=== PATIENT | female | born 1975 | race Caucasian/White ===

== ENCOUNTER 2018-05-20 14:05 | Emergency (ER) | payer OTHER ==
[~2018-05-20] VITALS: Ht 154.9 cm; Wt 66.2 kg
[2018-05-20] MEDS ORDERED: LORazepam 1MG TABLET PO ONE (14:30)
[2018-05-20 14:42] LABS: BASOPHILS # (AUTO) 0.04 x10^3/uL (0-0.1); BASOPHILS % (AUTO) 0 % (0-1); EOSINOPHILS # (AUTO) 0.02 x10^3/uL (0-0.4); EOSINOPHILS % (AUTO) 0 % (1-7); LYMPHOCYTES # (AUTO) 1.47 x10^3/uL (1-3.4); LYMPHOCYTES % (AUTO) 16 % (22-44); MD NO; MEAN CORPUSCULAR HEMOGLOBIN 35.9 pg (27.0-34.8); MEAN CORPUSCULAR HGB CONC 34.5 g/dL (32.4-35.8); MEAN CORPUSCULAR VOLUME 104.2 fL (80-100); MEAN PLATELET VOLUME 8.5 fL (7.4-10.4); MONOCYTES # (AUTO) 0.52 x10^3/uL (0.2-0.8); MONOCYTES % (AUTO) 6 % (2-9); NEUTROPHILS # (AUTO) 7.09 x10^3/uL (1.8-6.8); NEUTROPHILS % (AUTO) 78 % (42-75); PLATELET COUNT 168 x10^3/uL (130-400); RED BLOOD COUNT 3.92 x10^6/uL (3.82-5.3); RED CELL DISTRIBUTION WIDTH 12.2 % (9.6-15.2)
[2018-05-20] MEDS ORDERED: LORazepam 1MG TABLET ONE (14:50)
[2018-05-20 14:54] LABS: ALBUMIN 3.6 g/dL (3.4-5.0); ANION GAP 9 mmol/L (5-15); CALCIUM 9.2 mg/dL (8.5-10.1); CHLORIDE 106 mmol/L (98-107)
[2018-05-20 14:57] LABS: ALANINE AMINOTRANSFERASE 51 U/L (12-78); ALKALINE PHOSPHATASE 86 U/L (45-117); BILIRUBIN,TOTAL 0.7 mg/dL (0.2-1.0); CREATININE 1.36 mg/dL (0.55-1.02); TOTAL PROTEIN 8.1 g/dL (6.4-8.2)
[2018-05-20 16:48] VITALS: BP 132/87
== END 2018-05-20 16:51 | disposition home or self-care (01) ==
LOC: ED 16:37
DX: F41.1 Generalized anxiety disorder (principal); I10 Essential (primary) hypertension; F17.210 Nicotine dependence, cigarettes, uncomplicated; G43.909 Migraine, unspecified, not intractable, without status migrainosus
CPT/HCPCS: 36415; 70450; 71046; 80053; 85025; 93005; 99284

== ENCOUNTER 2020-12-15 19:39 | Emergency (ER) | payer OTHER ==
[~2020-12-15] VITALS: Ht 154.9 cm; Wt 61.5 kg
[2020-12-15 19:41] VITALS: BP 182/118
[2020-12-15] MEDS ORDERED: ACETAMINOPHEN 500 MG TABLET PO ONE (20:30)
[2020-12-15] MEDS ORDERED: ACETAMINOPHEN 500 MG TABLET ONE (20:34)
--- NOTE | 2020-12-15 20:37 | NUR ---
MEDS ADMIN PER AUG. XRAY AT BEDSIDE.
== END 2020-12-15 21:29 | disposition home or self-care (01) ==
LOC: ED 21:00
DX: L89.892 Pressure ulcer of other site, stage 2 (principal); I10 Essential (primary) hypertension; F17.200 Nicotine dependence, unspecified, uncomplicated
CPT/HCPCS: 99283

== ENCOUNTER 2021-01-01 19:04 | Inpatient (IN) | payer MEDICARE, MEDICAID ==
[~2021-01-01] VITALS: Ht 154.9 cm; Wt 65.2 kg
[2021-01-01] MEDS ORDERED: ENAL20TA9 PO (19:30)
[2021-01-01] MEDS ORDERED: SULF-23 PO (19:30)
[2021-01-01] MEDS ORDERED: ACET1TAB64 PO (19:30)
[2021-01-01] MEDS ORDERED: METO50TA6 PO (19:30)
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
[2021-01-01 20:01] LABS: BASOPHILS % (AUTO) 1 % (0-1); EOSINOPHILS % (AUTO) 4 % (1-7); LYMPHOCYTES % (AUTO) 23 % (22-44); MEAN CORPUSCULAR HGB CONC 33.9 g/dL (32.4-35.8); MEAN PLATELET VOLUME 9.2 fL (7.4-10.4); MONOCYTES % (AUTO) 9 % (2-9); NEUTROPHILS % (AUTO) 63 % (42-75); PLATELET COUNT 184 x10^3/uL (130-400); RED BLOOD COUNT 3.66 x10^6/uL (3.82-5.3); RED CELL DISTRIBUTION WIDTH 12.6 % (9.6-15.2)
[2021-01-01 20:06] LABS: ALBUMIN 3.4 g/dL (3.4-5.0); ANION GAP 5 mmol/L (5-15); C-REACTIVE PROTEIN, QUANT 0.27 mg/dL (0.02-0.49); CALCIUM 9.1 mg/dL (8.5-10.1); CHLORIDE 106 mmol/L (98-107); CREATININE 2.37 mg/dL (0.55-1.02)
[2021-01-01 20:27] LABS: <PLATELET ESTIMATE> ADEQUATE; <PLT MORPHOLOGY> NORMAL PLT MORPH; ANISOCYTOSIS 1+
--- NOTE | 2021-01-01 20:43 | NUR ---
ER PROVIDER AT BEDSIDE TO DISCUSS POC.
[2021-01-01] MEDS ORDERED: ONDANSETRON 2MG/ML, 2ML ONE (20:46)
[2021-01-01] MEDS ORDERED: MORPHINE SULFATE 4 MG/ML, 1ML ONE (20:47)
[2021-01-01] MEDS ORDERED: SODIUM CHLORIDE 0.9% 1,000ML IVBOLUS ONE (21:00)
--- NOTE | 2021-01-01 21:28 | NUR ---
ABX INFUSING AFTER 2ND SET OF BLOOD CULTURES DRAWN.
[2021-01-01] MEDS ORDERED: VANCOMYCIN 1,500 MG in SODIUM CHLORIDE 0.9% 250 ML IV ONE (21:30)
[2021-01-01] MEDS ORDERED: ONDANSETRON 2MG/ML, 2ML IVPush ONE (21:30)
[2021-01-01] MEDS ORDERED: VANCOMYCIN PER PHARMACY MC ONE (21:30)
[2021-01-01] MEDS ORDERED: CEFTRIAXONE 1,000 MG in DEXTROSE 5% 50 ML IVPB ONE (21:30)
[2021-01-01] MEDS ORDERED: MORPHINE SULFATE 4 MG/ML, 1ML IVPush PRN (21:30)
--- NOTE | 2021-01-01 21:34 | NUR ---
REPORT TO YESY VEGA.
[2021-01-01] MEDS ORDERED: ACETAMINOPHEN 325 MG TABLET PO PRN (22:00)
[2021-01-01] MEDS ORDERED: hydrALAzine 20 MG/ML, 1ML IVPush PRN (22:00)
[2021-01-01] MEDS ORDERED: METHOCARBAMOL 500 MG TABLET PO PRN (22:00)
[2021-01-01] MEDS ORDERED: ZOLPIDEM 5MG TABLET PO PRN (22:00)
[2021-01-01] MEDS ORDERED: VANCOMYCIN PER PHARMACY MC PRN (22:00)
[2021-01-01] MEDS ORDERED: GUAIFENESIN/DM 200-20MG, 10ML UDC PO PRN (22:00)
[2021-01-01 22:23] VITALS: BP 145/93
[2021-01-01] MEDS: OXYcodone IR 5MG TABLET PO PRN (22:50)
[2021-01-01] MEDS: SODIUM CHLORIDE 0.9% 1,000 ML IV SCH (22:51)
[2021-01-01] MEDS ORDERED: PHARMACOKINETIC MONITORING MC PRN (23:00)
[2021-01-02] MEDS: morphine SULFATE 10 MG/ML, 1ML IVPush PRN ×5 (00:49→20:06)
[2021-01-02 00:58] VITALS: BP 130/83
[2021-01-02 02:46] LABS: BASOPHILS % (AUTO) 1 % (0-1); EOSINOPHILS % (AUTO) 4 % (1-7); LYMPHOCYTES % (AUTO) 27 % (22-44); MEAN CORPUSCULAR HGB CONC 33.9 g/dL (32.4-35.8); MEAN PLATELET VOLUME 9.2 fL (7.4-10.4); MONOCYTES % (AUTO) 9 % (2-9); NEUTROPHILS % (AUTO) 60 % (42-75); PLATELET COUNT 154 x10^3/uL (130-400); RED BLOOD COUNT 3.39 x10^6/uL (3.82-5.3); RED CELL DISTRIBUTION WIDTH 12.4 % (9.6-15.2)
[2021-01-02] MEDS: OXYcodone IR 5MG TABLET PO PRN ×5 (02:54→22:04)
[2021-01-02 02:56] LABS: ANION GAP 4 mmol/L (5-15); CALCIUM 8.3 mg/dL (8.5-10.1); CHLORIDE 111 mmol/L (98-107); CREATININE 2.02 mg/dL (0.55-1.02)
[2021-01-02 07:32] VITALS: BP 135/91
[2021-01-02] MEDS: METOPROLOL TARTRATE 50 MG TAB PO SCH ×2 (07:56→20:07)
[2021-01-02] MEDS: AMLODIPINE 5 MG TABLET PO SCH (07:56)
[2021-01-02] MEDS: ONDANSETRON 2MG/ML, 2ML IVPush PRN ×2 (08:27→17:15)
[2021-01-02] MEDS ORDERED: ENALAPRIL 20MG TABLET PO SCH (09:00)
[2021-01-02] MEDS: SODIUM CHLORIDE 0.9% 1,000 ML IV SCH (12:00)
[2021-01-02 14:39] VITALS: BP 141/93
[2021-01-02] MEDS ORDERED: LORazepam 2 MG/ML, 1ML IVPush ONE (15:30)
[2021-01-02] MEDS ORDERED: LORazepam 2 MG/ML, 1ML IVPush PRN (16:30)
[2021-01-02] MEDS: HEPARIN 5,000 UNITS/ML, 1ML SQ SCH (17:16)
[2021-01-02 20:07] VITALS: BP 141/90
[2021-01-02] MEDS ORDERED: CEFTRIAXONE 2 GM in DEXTROSE 5% 50 ML IVPB SCH (21:30)
[2021-01-02] MEDS ORDERED: VANCOMYCIN 1,200 MG in SODIUM CHLORIDE 0.9% 250 ML IV ONE (22:00)
[2021-01-03] MEDS: morphine SULFATE 10 MG/ML, 1ML IVPush PRN ×5 (00:58→21:04)
[2021-01-03] MEDS: HEPARIN 5,000 UNITS/ML, 1ML SQ SCH ×3 (00:58→16:55)
[2021-01-03 01:02] VITALS: BP 116/80
[2021-01-03] MEDS: OXYcodone IR 5MG TABLET PO PRN ×4 (03:58→19:51)
[2021-01-03] MEDS: SODIUM CHLORIDE 0.9% 1,000 ML IV SCH (05:16)
[2021-01-03 06:14] LABS: ALANINE AMINOTRANSFERASE 23 U/L (12-78); ALBUMIN 2.8 g/dL (3.4-5.0); ANION GAP 4 mmol/L (5-15); CALCIUM 8.3 mg/dL (8.5-10.1); CHLORIDE 110 mmol/L (98-107); CREATININE 1.61 mg/dL (0.55-1.02)
[2021-01-03 06:16] LABS: ALKALINE PHOSPHATASE 102 U/L (45-117); BILIRUBIN,TOTAL 0.3 mg/dL (0.2-1.0); TOTAL PROTEIN 6.6 g/dL (6.4-8.2)
[2021-01-03] MEDS: METOPROLOL TARTRATE 50 MG TAB PO SCH ×2 (07:45→22:29)
[2021-01-03] MEDS: AMLODIPINE 5 MG TABLET PO SCH (07:45)
[2021-01-03 07:54] VITALS: BP 151/89
[2021-01-03] MEDS: ONDANSETRON 2MG/ML, 2ML IVPush PRN (10:03)
[2021-01-03] MEDS ORDERED: GADOTERATE 7.5 MMOL/15ML SYR ONE (11:13)
[2021-01-03 13:13] VITALS: BP 121/80
[2021-01-03 19:01] VITALS: BP 144/94
[2021-01-03 22:19] VITALS: BP 155/97
[2021-01-03] MEDS: DOCUSATE 100 MG CAPSULE PO PRN (22:29)
[2021-01-04 01:14] VITALS: BP 138/91
[2021-01-04] MEDS: morphine SULFATE 10 MG/ML, 1ML IVPush PRN ×2 (02:04→06:04)
[2021-01-04] MEDS: HEPARIN 5,000 UNITS/ML, 1ML SQ SCH ×3 (02:06→17:25)
[2021-01-04] MEDS: OXYcodone IR 5MG TABLET PO PRN ×5 (04:54→21:35)
[2021-01-04 06:52] VITALS: BP 135/83
[2021-01-04 07:15] LABS: BASOPHILS % (AUTO) 2 % (0-1); EOSINOPHILS % (AUTO) 5 % (1-7); LYMPHOCYTES % (AUTO) 31 % (22-44); MEAN CORPUSCULAR HGB CONC 33.8 g/dL (32.4-35.8); MEAN PLATELET VOLUME 9.4 fL (7.4-10.4); MONOCYTES % (AUTO) 11 % (2-9); NEUTROPHILS % (AUTO) 51 % (42-75); PLATELET COUNT 129 x10^3/uL (130-400); RED BLOOD COUNT 3.23 x10^6/uL (3.82-5.3); RED CELL DISTRIBUTION WIDTH 12.2 % (9.6-15.2)
[2021-01-04 07:21] LABS: ANION GAP 3 mmol/L (5-15); CALCIUM 8.5 mg/dL (8.5-10.1); CHLORIDE 110 mmol/L (98-107); CREATININE 1.43 mg/dL (0.55-1.02)
[2021-01-04] MEDS: METOPROLOL TARTRATE 50 MG TAB PO SCH ×2 (07:51→20:36)
[2021-01-04] MEDS: AMLODIPINE 5 MG TABLET PO SCH (07:51)
[2021-01-04 08:06] LABS: <PLATELET ESTIMATE> DECREASED; <PLT MORPHOLOGY> NORMAL PLT MORPH
[2021-01-04] MEDS: VANCOMYCIN 1,200 MG in SODIUM CHLORIDE 0.9% 250 ML IV SCH (12:34)
[2021-01-04 14:13] VITALS: BP 124/82
[2021-01-04 20:12] VITALS: BP 158/99
[2021-01-04] MEDS: DOCUSATE 100 MG CAPSULE PO PRN (21:36)
[2021-01-05 00:19] VITALS: BP 155/98
[2021-01-05] MEDS: DOCUSATE 100 MG CAPSULE PO PRN ×2 (06:15→22:30)
[2021-01-05] MEDS: HEPARIN 5,000 UNITS/ML, 1ML SQ SCH ×3 (06:16→22:17)
[2021-01-05] MEDS: OXYcodone IR 5MG TABLET PO PRN ×5 (06:35→21:49)
[2021-01-05 06:57] VITALS: BP 168/96
[2021-01-05] MEDS: METOPROLOL TARTRATE 50 MG TAB PO SCH ×2 (08:17→20:49)
[2021-01-05] MEDS: AMLODIPINE 5 MG TABLET PO SCH (08:17)
[2021-01-05] MEDS: VANCOMYCIN 1,200 MG in SODIUM CHLORIDE 0.9% 250 ML IV SCH (12:00)
[2021-01-05 12:52] VITALS: BP 159/95
[2021-01-05] MEDS: morphine SULFATE 10 MG/ML, 1ML IVPush PRN (15:19)
[2021-01-05] MEDS: CEFAZOLIN PMX 1GM/50ML 50 ML IV SCH (17:46)
[2021-01-05] MEDS ORDERED: POLYETHYLENE GLYCOL 17 GM PACKET ONE (17:52)
[2021-01-05 19:40] VITALS: BP 158/94
[2021-01-05 20:46] VITALS: BP 159/96
[2021-01-06 01:10] VITALS: BP 133/88
[2021-01-06] MEDS: CEFAZOLIN PMX 1GM/50ML 50 ML IV SCH ×2 (01:35→08:12)
[2021-01-06] MEDS: OXYcodone IR 5MG TABLET PO PRN ×3 (02:34→15:07)
[2021-01-06] MEDS: HEPARIN 5,000 UNITS/ML, 1ML SQ SCH ×2 (06:02→15:04)
[2021-01-06 06:17] LABS: BASOPHILS % (AUTO) 2 % (0-1); EOSINOPHILS % (AUTO) 7 % (1-7); LYMPHOCYTES % (AUTO) 28 % (22-44); MEAN CORPUSCULAR HEMOGLOBIN 36.8 pg (27.0-34.8); MEAN CORPUSCULAR HGB CONC 34.1 g/dL (32.4-35.8); MEAN PLATELET VOLUME 9.9 fL (7.4-10.4); MONOCYTES % (AUTO) 12 % (2-9); NEUTROPHILS % (AUTO) 52 % (42-75); PLATELET COUNT 152 x10^3/uL (130-400); RED BLOOD COUNT 3.35 x10^6/uL (3.82-5.3); RED CELL DISTRIBUTION WIDTH 12.3 % (9.6-15.2)
[2021-01-06 06:24] LABS: ALANINE AMINOTRANSFERASE 21 U/L (12-78); ALBUMIN 2.7 g/dL (3.4-5.0); ANION GAP 3 mmol/L (5-15); CALCIUM 8.5 mg/dL (8.5-10.1); CHLORIDE 110 mmol/L (98-107); CREATININE 1.17 mg/dL (0.55-1.02)
[2021-01-06 06:26] LABS: ALKALINE PHOSPHATASE 89 U/L (45-117); BILIRUBIN,TOTAL 0.4 mg/dL (0.2-1.0); TOTAL PROTEIN 6.2 g/dL (6.4-8.2)
[2021-01-06 07:53] VITALS: BP 173/98
[2021-01-06] MEDS: METOPROLOL TARTRATE 50 MG TAB PO SCH (08:07)
[2021-01-06] MEDS: DOCUSATE 100 MG CAPSULE PO PRN (08:07)
[2021-01-06] MEDS ORDERED: AMLODIPINE 5 MG TABLET PO SCH (09:00)
[2021-01-06] MEDS ORDERED: AMLO10TA4 PO (13:25)
[2021-01-06] MEDS ORDERED: OXYC5TAB98 PO (13:25)
[2021-01-06] MEDS ORDERED: CEPH-376 PO (13:27)
[2021-01-06 14:32] VITALS: BP 148/102
[2021-01-06] MEDS ORDERED: POLYETHYLENE GLYCOL 17 GM PACKET PO ONE (17:00)
== END 2021-01-06 16:35 | disposition home or self-care (01) | DRG 602 ==
LOC: ED 20:43 → EDIP 22:05 → 3N 22:10
PROVIDERS: ADMIT Internal Medicine; ATTEND Internal Medicine
DX: L03.115 Cellulitis of right lower limb (principal); N17.0 Acute kidney failure with tubular necrosis; E87.1 Hypo-osmolality and hyponatremia; B95.61 Methicillin susceptible Staphylococcus aureus infection as the cause of diseases classified elsewhere; D75.89 Other specified diseases of blood and blood-forming organs; F40.240 Claustrophobia; F41.1 Generalized anxiety disorder; G80.9 Cerebral palsy, unspecified; I12.9 Hypertensive chronic kidney disease with stage 1 through stage 4 chronic kidney disease, or unspecified chronic kidney disease; N18.9 Chronic kidney disease, unspecified; T63.301A Toxic effect of unspecified spider venom, accidental (unintentional), initial encounter; L97.519 Non-pressure chronic ulcer of other part of right foot with unspecified severity; Z83.3 Family history of diabetes mellitus; Z98.84 Bariatric surgery status; G43.909 Migraine, unspecified, not intractable, without status migrainosus
CPT/HCPCS: 36415; 80048; 80053; 80202; 82040; 82607; 83605; 84145; 85025; 85651; 86140; 87040; 87070; 87077; 87186; 87205; 96365; 96375; G0378; J0690; J0696; J1644; J2405; J3370; A9575; J2270; J7030; J7050

== ENCOUNTER 2021-01-15 10:12 | Outpatient (CLI) | payer MEDICAID, MEDICARE ==
[~2021-01-15 10:12] MED LIST: ACET1TAB64 PO; AMLO10TA4 PO; CEPH-376 PO; ENAL20TA9 PO; METO50TA6 PO; OXYC5TAB98 PO; SULF-23 PO
== END 2021-01-15 23:59 | disposition home or self-care (01) ==
LOC: WOUND 10:12
PROVIDERS: ATTEND Nurse Practitioner Family
DX: S81.801A Unspecified open wound, right lower leg, initial encounter (principal); S90.861A Insect bite (nonvenomous), right foot, initial encounter; L03.115 Cellulitis of right lower limb; M79.89 Other specified soft tissue disorders; I13.0 Hypertensive heart and chronic kidney disease with heart failure and stage 1 through stage 4 chronic kidney disease, or unspecified chronic kidney disease; I50.30 Unspecified diastolic (congestive) heart failure; N18.9 Chronic kidney disease, unspecified; G43.909 Migraine, unspecified, not intractable, without status migrainosus; G80.8 Other cerebral palsy; F41.1 Generalized anxiety disorder; F17.210 Nicotine dependence, cigarettes, uncomplicated; Z98.84 Bariatric surgery status; Z90.49 Acquired absence of other specified parts of digestive tract; Z98.890 Other specified postprocedural states; Z79.899 Other long term (current) drug therapy; W57.XXXA Bitten or stung by nonvenomous insect and other nonvenomous arthropods, initial encounter; X58.XXXA Exposure to other specified factors, initial encounter; Y93.89 Activity, other specified; Y92.89 Other specified places as the place of occurrence of the external cause; Y99.8 Other external cause status
CPT/HCPCS: 97597

== ENCOUNTER 2021-01-17 13:08 | Emergency (ER) | payer MEDICAID ==
[~2021-01-17] VITALS: Ht 154.9 cm; Wt 63.2 kg
[2021-01-17 13:14] VITALS: BP 160/102
[2021-01-17] MEDS ORDERED: OXYcodone/APAP 5/325MG TABLET PO ONE (15:00)
[2021-01-17] MEDS ORDERED: OXYcodone/APAP 5/325MG TABLET ONE (15:04)
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
== END 2021-01-17 15:38 | disposition home or self-care (01) ==
LOC: ED 13:30
DX: M79.671 Pain in right foot (principal); Z76.0 Encounter for issue of repeat prescription; I10 Essential (primary) hypertension; G43.909 Migraine, unspecified, not intractable, without status migrainosus
CPT/HCPCS: 99283

== ENCOUNTER → 2021-01-22 | Outpatient (CLI) | payer MEDICAID | END | disposition home or self-care (01) | LOC: WOUND 07:50 | PROVIDERS: ATTEND Internal Medicine | DX: S81.801D Unspecified open wound, right lower leg, subsequent encounter (principal); S90.861D Insect bite (nonvenomous), right foot, subsequent encounter; L03.115 Cellulitis of right lower limb; M79.89 Other specified soft tissue disorders; I13.0 Hypertensive heart and chronic kidney disease with heart failure and stage 1 through stage 4 chronic kidney disease, or unspecified chronic kidney disease; I50.30 Unspecified diastolic (congestive) heart failure; N18.9 Chronic kidney disease, unspecified; G43.909 Migraine, unspecified, not intractable, without status migrainosus; G80.8 Other cerebral palsy; F41.1 Generalized anxiety disorder; F17.210 Nicotine dependence, cigarettes, uncomplicated; Z98.84 Bariatric surgery status; Z90.49 Acquired absence of other specified parts of digestive tract; Z98.890 Other specified postprocedural states; Z79.899 Other long term (current) drug therapy; W57.XXXD Bitten or stung by nonvenomous insect and other nonvenomous arthropods, subsequent encounter; X58.XXXD Exposure to other specified factors, subsequent encounter | CPT/HCPCS: 97597 ==

== ENCOUNTER → 2021-01-29 | Outpatient (CLI) | payer MEDICAID | END | disposition home or self-care (01) | LOC: WOUND 08:15 | PROVIDERS: ATTEND Internal Medicine | DX: S81.801D Unspecified open wound, right lower leg, subsequent encounter (principal); S90.861D Insect bite (nonvenomous), right foot, subsequent encounter; L03.115 Cellulitis of right lower limb; M79.89 Other specified soft tissue disorders; I13.0 Hypertensive heart and chronic kidney disease with heart failure and stage 1 through stage 4 chronic kidney disease, or unspecified chronic kidney disease; I50.30 Unspecified diastolic (congestive) heart failure; N18.9 Chronic kidney disease, unspecified; G43.909 Migraine, unspecified, not intractable, without status migrainosus; G80.8 Other cerebral palsy; F40.240 Claustrophobia; F41.1 Generalized anxiety disorder; A49.01 Methicillin susceptible Staphylococcus aureus infection, unspecified site; F17.210 Nicotine dependence, cigarettes, uncomplicated; Z98.84 Bariatric surgery status; Z90.49 Acquired absence of other specified parts of digestive tract; Z98.890 Other specified postprocedural states; Z79.899 Other long term (current) drug therapy; W57.XXXD Bitten or stung by nonvenomous insect and other nonvenomous arthropods, subsequent encounter; X58.XXXD Exposure to other specified factors, subsequent encounter | CPT/HCPCS: 97597 ==

== ENCOUNTER 2021-02-12 13:13 | Outpatient (CLI) | payer MEDICAID | END 2021-02-12 23:59 | disposition home or self-care (01) | LOC: WOUND 13:13 | PROVIDERS: ATTEND Internal Medicine | DX: S90.861D Insect bite (nonvenomous), right foot, subsequent encounter (principal); S81.801D Unspecified open wound, right lower leg, subsequent encounter; L03.115 Cellulitis of right lower limb; M79.89 Other specified soft tissue disorders; I13.0 Hypertensive heart and chronic kidney disease with heart failure and stage 1 through stage 4 chronic kidney disease, or unspecified chronic kidney disease; I50.30 Unspecified diastolic (congestive) heart failure; N18.9 Chronic kidney disease, unspecified; G43.909 Migraine, unspecified, not intractable, without status migrainosus; G80.8 Other cerebral palsy; F40.240 Claustrophobia; F41.1 Generalized anxiety disorder; A49.01 Methicillin susceptible Staphylococcus aureus infection, unspecified site; F17.210 Nicotine dependence, cigarettes, uncomplicated; Z98.84 Bariatric surgery status; Z90.49 Acquired absence of other specified parts of digestive tract; Z98.890 Other specified postprocedural states; Z79.899 Other long term (current) drug therapy; W57.XXXD Bitten or stung by nonvenomous insect and other nonvenomous arthropods, subsequent encounter; X58.XXXD Exposure to other specified factors, subsequent encounter | CPT/HCPCS: 97597 ==